=== PATIENT | male | born 1960 | race Caucasian/White ===

== ENCOUNTER 2021-01-19 12:13 | Emergency (ER) | payer MEDICAID, OTHER ==
[~2021-01-19] VITALS: Ht 167.6 cm; Wt 81.6 kg
[2021-01-19 12:20] VITALS: BP 158/83
== END 2021-01-19 13:30 | disposition home or self-care (01) ==
LOC: ER 12:16
DX: S01.511A Laceration without foreign body of lip, initial encounter (principal); S20.311A Abrasion of right front wall of thorax, initial encounter; Z88.6 Allergy status to analgesic agent; W26.8XXA Contact with other sharp object(s), not elsewhere classified, initial encounter; Y93.89 Activity, other specified; Y92.89 Other specified places as the place of occurrence of the external cause; Y99.8 Other external cause status
CPT/HCPCS: 40650; 46050